=== PATIENT | male | born 1965 | race African-American/Black ===

== ENCOUNTER → 2021-05-27 | Outpatient (CLI) | payer SELFPAY ==
[~2021-05-27] MED LIST: IOPAMIDOL 370 MG/ML 200 ML INFUS..BTL INJ ONE; METOPROLOL TARTRATE 25 MG TAB ONE; METOPROLOL TARTRATE INJ 1 MG/ML VIAL ONE; NITROGLYCERIN 0.4 MG SUBL ONE; SODIUM CHLORIDE 0.9% 100 ML ONE
[2021-05-27 09:22] LABS: CREATININE, SERUM 1.22 mg/dL (0.72-1.25)
== END ==
LOC: CT 08:19
PROVIDERS: ATTEND Internal Medicine Cardiovascular Disease
DX: R94.39 Abnormal result of other cardiovascular function study (principal)
CPT/HCPCS: 36415; 75574; 82565; 84520; J7050; Q9967